=== PATIENT | female | born 1970 | race Two or more races ===

== ENCOUNTER 2021-07-25 06:05 | Emergency (ER) | payer MEDICAID, OTHER ==
[~2021-07-25] VITALS: Ht 154.9 cm; Wt 56.7 kg
[2021-07-25] MEDS ORDERED: KETOROLAC TROMETH 60MG/2ML VIAL IM ONE (07:00)
[2021-07-25 07:06] VITALS: BP 138/78
[2021-07-25] MEDS ORDERED: PRED20TA2 PO (07:19)
[2021-07-25] MEDS ORDERED: IBUP800T27 PO (07:19)
== END 2021-07-25 07:30 | disposition home or self-care (01) ==
LOC: ER 06:05
DX: M54.42 Lumbago with sciatica, left side (principal)
CPT/HCPCS: 72100; 96372; 99283; J1885

== ENCOUNTER 2024-01-28 17:38 | Emergency (ER) | payer SELFPAY ==
[~2024-01-28] VITALS: Ht 154.9 cm; Wt 59.5 kg
[~2024-01-28 17:38] MED LIST: IBUP-1456 PO; PRED20TA2 PO
[2024-01-28 20:45] VITALS: BP 133/73; PULSE 62; RESP 19; TEMP 99.1; O2SAT 99
[2024-01-28] MEDS ORDERED: METH4PAK PO (21:06)
[2024-01-28] MEDS: DexAMETHasone SOD PHOS 10MG/1ML VIAL INJ IM ONE (21:23)
== END 2024-01-28 21:23 | disposition home or self-care (01) ==
LOC: ER 17:38
DX: M72.2 Plantar fascial fibromatosis (principal); Z79.899 Other long term (current) drug therapy
CPT/HCPCS: 73630; J1100